=== PATIENT | female | born 1985 | race Two or more races ===

== ENCOUNTER 2019-03-10 08:22 | Inpatient (IN) | payer OTHER ==
[~2019-03-10] VITALS: Ht 154.9 cm; Wt 68.0 kg
[2019-03-10] MEDS ORDERED: PRENATAL FORMU1 EAC1 PO (10:07)
== END 2019-03-12 13:01 | disposition home or self-care (01) | DRG 805 ==
LOC: LDR 08:22 → OB/GYN 08:22 → LDR 13:13 → OB/GYN 21:14
PROVIDERS: ADMIT Obstetrics & Gynecology
PROC: 10E0XZZ Delivery of Products of Conception, External Approach (ICD-10-PCS; principal; 2019-03-10)
PROC: 0HQ9XZZ Repair Perineum Skin, External Approach (ICD-10-PCS; 2019-03-10)
PROC: 3E033VJ Introduction of Other Hormone into Peripheral Vein, Percutaneous Approach (ICD-10-PCS; 2019-03-10)
PROC: 4A1HXCZ Monitoring of Products of Conception, Cardiac Rate, External Approach (ICD-10-PCS; 2019-03-10)
PROC: BY4FZZZ Ultrasonography of Third Trimester, Single Fetus (ICD-10-PCS; 2019-03-10)
DX: O70.0 First degree perineal laceration during delivery (principal); O60.14X0 Preterm labor third trimester with preterm delivery third trimester, not applicable or unspecified; Z37.0 Single live birth; Z3A.36 36 weeks gestation of pregnancy

== ENCOUNTER → 2020-01-16 | Outpatient (CLI) | payer OTHER ==
[~2020-01-16] MED LIST: PRENATAL FORMU1 EAC1 PO
== END | disposition home or self-care (01) ==
LOC: PRENATAL 13:00
DX: O35.3XX0 Maternal care for (suspected) damage to fetus from viral disease in mother, not applicable or unspecified (principal); O09.522 Supervision of elderly multigravida, second trimester